=== PATIENT | male | born 1980 | race Caucasian/White ===

== ENCOUNTER 2018-05-25 08:57 | Emergency (ER) | payer OTHER ==
--- NOTE | 2018-05-25 10:21 | RAD ---
LEFT SHOULDER 3 VIEWS: Date: 05/25/18 HISTORY: Pain. COMPARISON: None. FINDINGS: No acute fracture or malalignment. Soft tissues are unremarkable. Ribs are normal. IMPRESSION: Normal examination of the left shoulder. POS: [facility]
--- NOTE | 2018-05-25 10:22 | RAD ---
RIGHT SHOULDER 3 VIEWS: Date: 05/25/18 HISTORY: Pain. COMPARISON: None. FINDINGS: No fracture. No malalignment. Soft tissues are unremarkable. Ribs are unremarkable. IMPRESSION: Normal examination right shoulder. POS: [facility]
== END 2018-05-25 09:56 | disposition home or self-care (01) ==
LOC: SCSER 08:57
DX: M25.512 Pain in left shoulder (principal); M25.511 Pain in right shoulder; G89.29 Other chronic pain; F17.210 Nicotine dependence, cigarettes, uncomplicated; Z79.899 Other long term (current) drug therapy